=== PATIENT | female | born 1975 | race Caucasian/White ===

== ENCOUNTER 2016-09-15 05:14 | Day surgery (SDC) | payer MEDICAID ==
[2016-09-13 12:15] LABS: BASOPHILS 0.3 % (0.0-2.0); EOSINOPHILS 1.5 % (0-7); HEMATOCRIT 39.6 % (36.0-48.0); HEMOGLOBIN 13.3 g/dL (12-16); IMMATURE GRANULOCYTES 0.3 % (0-5); LYMPHOCYTES 32.6 % (15-50); MCH 32.9 pg (26.0-34.0); MCHC 33.6 g/dL (31.0-37.0); MEAN PLATELET VOLUME 8.9 fL (7.4-10.4); MONOCYTES 11.5 % (2-11); NEUTROPHILS 53.8 % (40-80); PLATELET COUNT 261 10x3/uL (130-400); RBC 4.04 10x6/uL (4.00-5.40); RDW 12.6 % (11.5-14.5); WBC 7.2 10x3/uL (4.8-10.8)
[~2016-09-15] VITALS: Ht 149.9 cm; Wt 39.0 kg
[~2016-09-15 05:14] MED LIST: MULTIPLE VITAMI1 TA1 PO; NORCO 7.5/325 T1 TA1 PO
[2016-09-15 06:48] VITALS: BP 106/63; Ht 149.9 cm; Wt 39.0 kg
[2016-09-15 07:15] LABS: HCG URINE NEGATIVE (NEGATIVE)
--- NOTE | 2016-10-11 11:44 | OP ---
PATIENT NAME: ZAIRE TRAN MEDICAL RECORD: [id number] :71 LOCATION:D[facility] ADMISSION DATE: SURGEON: JASMIN AMEZQUITA MD DATE OF OPERATION: 09/15/2016 PREOPERATIVE DIAGNOSES: 1. Menorrhagia. 2. History of a previous section with history of vaginal after . POSTOPERATIVE DIAGNOSES: 1. Menorrhagia. 2. History of a previous section with history of vaginal after . PROCEDURE: Hysteroscopy and NovaSure endometrial ablation. SURGEON: Jasmin Amezquita MD. ESTIMATED BLOOD LOSS: Minimal. INTRAVENOUS FLUIDS: Per anesthesia records. HYSTEROSCOPIC FLUID LOSS: Approximately 300 cc of 0.9 normal saline. ANESTHESIA: General endotracheal. FINDINGS: 1. Normal-appearing cervix, leading to an anteverted uterine cavity. No evidence of any anterior wall defects noted. 2. Normal ostia bilaterally noted. 3. Grossly normal external genitalia and cervix. PROCEDURE IN DETAIL: The patient was taken to the operating room where general anesthesia was achieved without difficulty. The patient was prepped and draped in normal sterile fashion in the [facility]. At this point, the bladder was drained of approximately 10-15 cc of clear yellow urine. The Graves speculum was placed in the vagina and the cervix was grasped on its anterior lip with a single-toothed tenaculum. At this point, the uterus was sounded without resistance to approximately 8.5-9 cm. The uterine cavity assessment, a tool was used to estimate a cervical length of 3 and a cavity length of 5.5 cm. Hysteroscopy was performed, as noted no previous anterior defects on the anterior uterus from any vertical section were noted, grossly normal-appearing proliferative endometrium noted and bilateral ostia noted. The hysteroscope was removed and the patient was dilated to approximately 8 mm. The NovaSure then was introduced to the level of the fundus and withdrawn 0.5 cm. The handle was deployed per NovaSure protocol until the cavity was sounded to be 4.1 cm. At this point, the vacuum sleeve was approximated to the opening of the cervix and cavity assessment was performed and passed. Vacuum assessment was performed and passed as well. The machine was enabled and a 90-second therapy cycle was noted. Following the therapy cycle, the vacuum sleeve was then retracted and using the bow and arrow technique, the back handle was withdrawn without difficulty. No bleeding was noted from the os and tenaculum was removed. The patient tolerated the procedure well, transferred to postanesthesia recovery stable and without incident. OPERATIVE REPORT [id number] ZAIRE TRAN TRANSTASHA:[id number] Voice Confirmation ID: [id number] DOCUMENT ID: [id number] JASMIN AMEZQUITA MD at 1142 CC: [id number] DICTATION DATE: 09/15/1633 FRUIT DRYER: 09/15/16 1005 REG [facility] [address] [place] [address]
== END 2016-09-15 11:25 | disposition home or self-care (01) ==
LOC: D.OPS 05:14 → D.PAN 08:45 → D.OPS 08:45
PROVIDERS: Obstetrics & Gynecology
DX: N92.0 Excessive and frequent menstruation with regular cycle (principal)

== ENCOUNTER 2017-02-11 17:34 | Emergency (ER) | payer MEDICAID ==
[2016-09-15 06:48] VITALS: BMI 17.4
== END 2017-02-11 18:52 | disposition home or self-care (01) ==
LOC: D.ER 17:34
DX: K08.89 Other specified disorders of teeth and supporting structures (principal); S02.5XXA Fracture of tooth (traumatic), initial encounter for closed fracture; X58.XXXA Exposure to other specified factors, initial encounter; Y93.9 Activity, unspecified; K02.9 Dental caries, unspecified

== ENCOUNTER 2017-03-15 09:29 | Emergency (ER) | payer MEDICAID ==
[2016-09-15 06:48] VITALS: BMI 17.4
== END 2017-03-15 09:55 | disposition home or self-care (01) ==
LOC: D.ER 09:29
DX: K08.89 Other specified disorders of teeth and supporting structures (principal); K02.9 Dental caries, unspecified; K04.7 Periapical abscess without sinus

== ENCOUNTER 2017-08-18 13:25 | Emergency (ER) | payer BC, OTHER ==
[2016-09-15 06:48] VITALS: BMI 17.4
[2017-08-18 17:16] LABS: APPEARANCE CLEAR (CLEAR); BILIRUBIN NEGATIVE (NEGATIVE); COLOR YELLOW (YELLOW); GLUCOSE NEGATIVE (NEGATIVE); KETONE NEGATIVE (NEGATIVE); NITRITE NEGATIVE (NEGATIVE); PROTEIN NEGATIVE (NEGATIVE); SPECIFIC GRAVITY 1.015 (1.005-1.020); UROBILINOGEN NORMAL (NORMAL)
== END 2017-08-18 18:09 | disposition home or self-care (01) ==
LOC: D.ER 13:25
PROVIDERS: Nurse Practitioner Family
DX: N76.0 Acute vaginitis (principal); B96.89 Other specified bacterial agents as the cause of diseases classified elsewhere; B37.9 Candidiasis, unspecified